=== PATIENT | male | born 1950 | race Caucasian/White ===

== ENCOUNTER 2018-08-31 11:07 | Observation (INO) | payer SELFPAY ==
[~2018-08-31] VITALS: Ht 185.4 cm; Wt 64.0 kg
[2018-08-31 11:34] LABS: BASOPHILS # (AUTO) 0.02 x10^3/uL (0-0.1); BASOPHILS % (AUTO) 0 % (0-1); EOSINOPHILS # (AUTO) 0.01 x10^3/uL (0-0.4); EOSINOPHILS % (AUTO) 0 % (1-7); LYMPHOCYTES # (AUTO) 1.14 x10^3/uL (1-3.4); LYMPHOCYTES % (AUTO) 16 % (22-44); MD NO; MEAN CORPUSCULAR HEMOGLOBIN 37.7 pg (27.5-34.5); MEAN CORPUSCULAR HGB CONC 34.5 g/dL (33.2-36.2); MEAN CORPUSCULAR VOLUME 109.4 fL (81-97); MEAN PLATELET VOLUME 7.9 fL (7.4-10.4); MONOCYTES % (AUTO) 6 % (2-9); NEUTROPHILS # (AUTO) 5.66 x10^3/uL (1.8-6.8); NEUTROPHILS % (AUTO) 78 % (42-75); PLATELET COUNT 162 x10^3/uL (130-400); RED BLOOD COUNT 3.86 x10^6/uL (4.38-5.82); RED CELL DISTRIBUTION WIDTH 14.3 % (9.4-14.8)
[2018-08-31 11:47] LABS: ALBUMIN 3.7 g/dL (3.4-5.0); ANION GAP 11 mmol/L (5-15); CALCIUM 7.6 mg/dL (8.5-10.1); CHLORIDE 105 mmol/L (98-107)
[2018-08-31 11:50] LABS: ALANINE AMINOTRANSFERASE 33 U/L (12-78); ALKALINE PHOSPHATASE 89 U/L (45-117); BILIRUBIN,TOTAL 0.5 mg/dL (0.2-1.0); CREATININE 0.53 mg/dL (0.7-1.3); TOTAL PROTEIN 6.8 g/dL (6.4-8.2)
[2018-08-31] MEDS ORDERED: MECLIZINE CHEWABLE 25 MG TAB ONE (12:15)
[2018-08-31] MEDS ORDERED: MECLIZINE CHEWABLE 25 MG TAB PO ONE (12:30)
[2018-08-31] MEDS ORDERED: DIAZEPAM 5 MG TABLET ONE (13:06)
[2018-08-31] MEDS ORDERED: DIAZEPAM 5 MG TABLET PO ONE (13:30)
[2018-08-31 13:48] LABS: MICROSCOPIC INDICATED
[2018-08-31 13:50] LABS: CULTURE INDICATED? NO
[2018-08-31] MEDS: ENOXAPARIN 40 MG/0.4 ML SQ SCH (15:00)
[2018-08-31] MEDS ORDERED: ONDANSETRON ODT 4 MG PO PRN (15:00)
[2018-08-31 15:34] LABS: TROPONIN I < 0.015 ng/mL (0.000-0.045)
[2018-08-31 15:40] LABS: THYROID STIMULATING HORMONE 0.925 mIU/L (0.358-3.740)
[2018-08-31] MEDS ORDERED: MECLIZINE 12.5 MG TABLET PO PRN (16:00)
[2018-08-31 17:20] VITALS: BP 134/88
[2018-08-31] MEDS: NICOTINE 21 MG/24 HR PATCH.TD24 TD SCH (17:47)
[2018-08-31] MEDS: ACETAMINOPHEN 325 MG TABLET PO PRN (19:55)
[2018-08-31 20:11] VITALS: BP 121/79
[2018-08-31 21:12] LABS: TROPONIN I < 0.015 ng/mL (0.000-0.045)
[2018-09-01 01:35] VITALS: BP 133/76
[2018-09-01] MEDS: ACETAMINOPHEN 325 MG TABLET PO PRN ×2 (04:00→21:21)
[2018-09-01 04:51] LABS: BASOPHILS # (AUTO) 0.01 x10^3/uL (0-0.1); BASOPHILS % (AUTO) 0 % (0-1); EOSINOPHILS # (AUTO) 0.02 x10^3/uL (0-0.4); EOSINOPHILS % (AUTO) 0 % (1-7); LYMPHOCYTES # (AUTO) 1.14 x10^3/uL (1-3.4); LYMPHOCYTES % (AUTO) 19 % (22-44); MD NO; MEAN CORPUSCULAR HGB CONC 33.9 g/dL (33.2-36.2); MEAN CORPUSCULAR VOLUME 109.1 fL (81-97); MEAN PLATELET VOLUME 8.6 fL (7.4-10.4); MONOCYTES # (AUTO) 0.35 x10^3/uL (0.2-0.8); MONOCYTES % (AUTO) 6 % (2-9); NEUTROPHILS # (AUTO) 4.52 x10^3/uL (1.8-6.8); NEUTROPHILS % (AUTO) 75 % (42-75); PLATELET COUNT 130 x10^3/uL (130-400); RED BLOOD COUNT 3.77 x10^6/uL (4.38-5.82); RED CELL DISTRIBUTION WIDTH 14.2 % (9.4-14.8)
[2018-09-01 05:06] LABS: ANION GAP 11 mmol/L (5-15); CALCIUM 8.4 mg/dL (8.5-10.1); CHLORIDE 102 mmol/L (98-107); CREATININE 0.41 mg/dL (0.7-1.3)
[2018-09-01 08:52] VITALS: BP_SYST 105; BP_SYST 146; BP_DIAS 70; BP_DIAS 88
[2018-09-01 12:01] LABS: % IRON SATURATION 40 % (20-55); IRON LEVEL 118 mcg/dL (65-175); TOTAL IRON BINDING CAPACITY 292 mcg/dL (250-450)
[2018-09-01 12:31] LABS: FOLATE LEVEL > 20.0 ng/mL (3.1-17.5)
[2018-09-01 13:35] VITALS: BP 100/69
[2018-09-01] MEDS: ENOXAPARIN 40 MG/0.4 ML SQ SCH (15:00)
[2018-09-01] MEDS: NICOTINE 21 MG/24 HR PATCH.TD24 TD SCH (16:40)
[2018-09-01 19:24] VITALS: BP 118/84
[2018-09-01] MEDS: DIPHENHYDRAMINE 12.5MG/5ML, 10ML UDC PO PRN ×2 (21:22→22:32)
[2018-09-02 00:54] VITALS: BP 113/71
[2018-09-02 05:25] LABS: BASOPHILS # (AUTO) 0.01 x10^3/uL (0-0.1); BASOPHILS % (AUTO) 0 % (0-1); EOSINOPHILS # (AUTO) 0.05 x10^3/uL (0-0.4); EOSINOPHILS % (AUTO) 1 % (1-7); LYMPHOCYTES # (AUTO) 1.06 x10^3/uL (1-3.4); LYMPHOCYTES % (AUTO) 23 % (22-44); MD NO; MEAN CORPUSCULAR HEMOGLOBIN 37.4 pg (27.5-34.5); MEAN CORPUSCULAR HGB CONC 34.3 g/dL (33.2-36.2); MEAN PLATELET VOLUME 8.9 fL (7.4-10.4); MONOCYTES # (AUTO) 0.36 x10^3/uL (0.2-0.8); MONOCYTES % (AUTO) 8 % (2-9); NEUTROPHILS # (AUTO) 3.25 x10^3/uL (1.8-6.8); NEUTROPHILS % (AUTO) 69 % (42-75); PLATELET COUNT 118 x10^3/uL (130-400); RED BLOOD COUNT 3.53 x10^6/uL (4.38-5.82); RED CELL DISTRIBUTION WIDTH 13.6 % (9.4-14.8)
[2018-09-02 05:36] LABS: ALBUMIN 3.2 g/dL (3.4-5.0); ANION GAP 9 mmol/L (5-15); CALCIUM 8.8 mg/dL (8.5-10.1); CHLORIDE 101 mmol/L (98-107)
[2018-09-02 05:39] LABS: ALANINE AMINOTRANSFERASE 26 U/L (12-78); ALKALINE PHOSPHATASE 87 U/L (45-117); CREATININE 0.43 mg/dL (0.7-1.3); TOTAL PROTEIN 6.3 g/dL (6.4-8.2)
[2018-09-02 08:49] VITALS: BP 110/76
[2018-09-02] MEDS ORDERED: MECL12.52 PO (11:12)
[2018-09-02] MEDS ORDERED: NICO1PAT27 TD (11:15)
== END 2018-09-02 13:31 | disposition home or self-care (01) ==
LOC: ED 13:00 → EDIP 14:55 → 3NE 17:08
PROVIDERS: ADMIT Hospitalist; ATTEND Hospitalist
DX: R42 Dizziness and giddiness (principal); D53.9 Nutritional anemia, unspecified; E44.0 Moderate protein-calorie malnutrition; F17.210 Nicotine dependence, cigarettes, uncomplicated; R62.7 Adult failure to thrive; R29.6 Repeated falls; W18.30XA Fall on same level, unspecified, initial encounter; Y92.009 Unspecified place in unspecified non-institutional (private) residence as the place of occurrence of the external cause
CPT/HCPCS: 36415; 70450; 70553; 71045; 80048; 80053; 81001; 82607; 82746; 83540; 83550; 83735; 84443; 84484; 85025; 90471; 90656; 93005; 93306; 97162; 97166; 97530; 97535; 99285; G0378